=== PATIENT | male | born 1950 | race Caucasian/White ===

== ENCOUNTER → 2018-03-15 | Outpatient (CLI) | payer MEDICARE, OTHER ==
[2018-03-15 10:18] LABS: HCT 47.1 % (39.0-53.0); HGB 16.2 gm/dL (13.0-17.5); MCH 32.8 pg (25.0-35.0); MCHC 34.3 g/dL (31.0-37.0); MCV 95.6 fL (80.0-100.0); Mean Platelet Volume 6.4; Platelet Count 236 k/uL (150-450); RBC 4.93 m/uL (4.30-5.90); RDW 12.9 % (11.5-15.5); WBC 7.5 k/uL (3.8-10.6)
--- NOTE | 2018-03-15 10:24 | US ---
EXAMINATION TYPE: US venous doppler duplex LE DATE OF EXAM: 03/15/2018 8:40 AM COMPARISON: NONE CLINICAL HISTORY: M79.604 Pain in right leg. Slow to heal Right Great Toe plantar surface ulcer x 1.5 months; [facility] SIDE PERFORMED: Bilateral VESSELS IMAGED: LOWER EXTREMITY VENOUS INSUFFICIENCY 1) Color flow is present and patency is documented in the following vessels. No DVT or SVT is noted . Common Femoral Vein Deep Femoral Vein Femoral Vein Popliteal Vein Proximal Calf Veins Greater Saph Vein Upper Small Saph Vein 2) There is venous reflux noted at the following venous levels: 0 Bilateral CFV delayed valvular closure is noted. 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
[2018-03-15 10:44] LABS: ALT 27 U/L (21-72); AST 18 U/L (17-59); Albumin 3.8 g/dL (3.5-5.0); Alkaline Phosphatase 51 U/L (38-126); Anion Gap 7 mmol/L; Blood Urea Nitrogen 13 mg/dL (9-20); Calcium 9.3 mg/dL (8.4-10.2); Carbon Dioxide 28 mmol/L (22-30); Chloride 105 mmol/L (98-107); Glucose 135 mg/dL (74-99); Potassium 4.9 mmol/L (3.5-5.1); Sodium 140 mmol/L (137-145); Total Bilirubin 0.4 mg/dL (0.2-1.3); Total Protein 6.7 g/dL (6.3-8.2)
[2018-03-15 11:34] LABS: Erythrocyte Sedimentation Rate 9 mm/hr (0-15)
== END | disposition home or self-care (01) ==
LOC: RADUSWWP 07:49
PROVIDERS: ATTEND Internal Medicine Infectious Disease
DX: R93.7 Abnormal findings on diagnostic imaging of other parts of musculoskeletal system (principal); M79.604 Pain in right leg; M86.8X8 Other osteomyelitis, other site; E13.621 Other specified diabetes mellitus with foot ulcer
CPT/HCPCS: 36415; 80053; 83036; 84134; 85027; 85652; 86140; 93970

== ENCOUNTER → 2018-03-15 | Outpatient (CLI) | payer MEDICARE, OTHER ==
--- NOTE | 2018-03-20 10:00 | P.ARTDOP ---
Arterial Doppler LOWER EXTREMITY ARTERIAL DOPPLER: DATE OF SERVICE: 03/15/2018 Reason for study: Claudication right calf and right foot ulcer. Doppler waveforms: Multiphasic at both femorals. Atypical at the posterior tibial and popliteal on the right. Multiphasic at the left popliteal atypical at the posterior tibial. The right digital plethysmography and waveforms are near flat line as are the digital waveforms on the left.. Pulse volume recording: []. Pressure gradients: Only at the foot level on the left and nonmeasured on the right. Ankle-brachial indices: Greater than 1 bilaterally but appear to be falsely elevated. Toe pressures: Not measured on the right, 57 on the left Impression: Suspect calcific wall disease causing falsely elevated ankle pressures. Suspect at least moderate right femoral popliteal disease with a predominance in the distal vessels. Mild to moderate left femoral popliteal disease with emphasis on the distal aspect. Clinical correlation recommended..
== END | disposition home or self-care (01) ==
LOC: RADUSWWP 07:54
PROVIDERS: ATTEND Internal Medicine Infectious Disease
DX: I77.89 Other specified disorders of arteries and arterioles (principal)
CPT/HCPCS: 93923

== ENCOUNTER → 2018-03-30 | Outpatient (CLI) | payer MEDICARE ==
--- NOTE | 2018-03-30 18:49 | MR ---
EXAMINATION TYPE: MR foot RT wo/w con DATE OF EXAM: 03/30/2018 COMPARISON: None HISTORY: Redness and swelling CONTRAST: Standard multiplanar, multisequence MRI departmental protocol utilizing 10 mL intravenous Gadavist co ntrast. FINDINGS: There is diffuse soft tissue edema correlate for cellulitis. There is abnormal signal within the distal phalanx of the first digit suggestive of osteomyelitis. Th ere is some limitation due to the [id number] regard to the very distal margin of the distal phalan x. Cannot exclude a pathologic fracture correlate with standard x-ray. Arthropathy of the first MTP joint noted. Abnormal signal involving the talus is nonspecific and only partially imaged. The tendinous and ligamentous structures appear to be intact. IMPRESSION: Diffuse soft tissue edema with evidence of abnormal signal involving the distal phalanx first digit. The appropriate clinical setting the findings could be consistent with cellulitis and osteomyelitis. Pathologic fracture involving the distal phalanx as discussed above not excluded correlate with stand chris x-ray.
== END | disposition home or self-care (01) ==
LOC: RADMRIMAIN 16:17
PROVIDERS: ATTEND Internal Medicine Infectious Disease
DX: M84.474A Pathological fracture, right foot, initial encounter for fracture (principal)
CPT/HCPCS: 73720; A9581